=== PATIENT | female | born 1965 | race Caucasian/White ===

== ENCOUNTER 2017-07-22 10:52 | Day surgery (SDC) | payer OTHER ==
[2017-07-22 11:19] LABS: #Lymphocytes 1.1 thou/uL (1.20-3.40); #Monocytes 0.6 thou/uL (0.11-0.59); #Neutrophils 8.7 thou/uL (1.40-6.50); %Eosinophils 0.3 % (0.0-10.0); %Lymphocytes 10.1 % (21.0-51.0); Hematocrit 41.8 % (36.0-47.0); Red Blood Cell (RBC) Count 4.53 mill/uL (4.20-5.40); White Blood Cell (WBC) Count 10.4 thou/uL (4.8-10.8)
[2017-07-22] MEDS ORDERED: Sodium Chloride 0.9% 100 ML ONE (11:24)
[2017-07-22] MEDS ORDERED: Adacel (T-DAP) 0.5 ML VIAL ONE (11:24)
[2017-07-22] MEDS ORDERED: ceFAZolin Sodium 1 GM VIAL ONE (11:24)
[2017-07-22 11:46] LABS: ALT (SGPT) 13 U/L (8-55); AST (SGOT) 18 U/L (5-34); Alkaline Phosphatase 83 U/L (40-150); Anion Gap 12 mmol/L (10-20); BUN (Urea Nitrogen) 21 mg/dL (9.8-20.1); Bilirubin, Total 0.6 mg/dL (0.2-1.2); CK (CPK) 300 U/L (29-168); Calc. Creatinine Clearance 0 mL/min (70-130); Calcium 10.4 mg/dL (7.8-10.44); Carbon Dioxide 26 mmol/L (22-29); Chloride 105 mmol/L (98-107); Estimated GFR-MDRD 62; Globulin 3.2 g/dL (2.4-3.5); Lipase 51 U/L (8-78); Protein, Total 7.7 g/dL (6.0-8.3)
[2017-07-22 11:47] LABS: Troponin I 0.338 ng/mL (< 0.028)
--- NOTE | 2017-07-22 12:00 | RAD ---
CHEST ONE VIEWS: History: Chest pain. Comparison: 11-18-06 FINDINGS: Cervical fusion hardware is noted. Normal cardiac silhouette. The pulmonary vessels and hilum are no abdifatah. No masses or consolidation. No pneumothorax or osseous abnormality. IMPRESSION: No acute cardiopulmonary process. POS: [facility]
[2017-07-22] MEDS ORDERED: Bacitracin Zinc 1 Packet ONE (12:21)
--- NOTE | 2017-07-22 12:50 | RAD ---
LEFT FINGER THREE VIEWS: History: Injury. Comparison: None. FINDINGS: Moderate edema. No acute fracture or malalignment is appreciated. Mild degenerative joint space narr owing. IMPRESSION: No acute fracture or malalignment. POS: [facility]
--- NOTE | 2017-07-22 12:51 | RAD ---
THREE VIEWS OF THE LEFT FINGER: INDICATIONS: History of trauma to the left finger. The patient had a stressful event prior to arrival. Her dogs were fighting and she had to pull them apart. FINDINGS: There is an ossific density seen just volar to the long finger, middle phalangeal neck, which may re flect a small avulsion injury from the capsule insertion. There is soft tissue swelling of the left long finger. IMPRESSION: Findings suspicious for a small avulsion injury involving the palmar aspect of the left long finger middle phalangeal head/neck region. This can be seen with avulsion fractures of the capsular insert ion. POS: [facility]
[2017-07-22] MEDS ORDERED: Heparin 10,000 UNITS/1 ML VIAL ONE (13:04)
[2017-07-22] MEDS ORDERED: Nitroglycerin 100MG/250ML BOT 250 ML ONE (13:04)
--- NOTE | 2017-07-22 13:27 | CON ---
DATE OF CONSULTATION: 07/22/2017 HAND SURGERY CONSULT LOCATION: Emergency Room CHIEF COMPLAINT: Bilateral upper extremity dog bite. The patient reports she is a previous cardiac patient. The patient has had cardiac catheterization, stress test, who felt that she had two dogs undergoing a lot of stress with and etc. around her house who had a fight. She did not wa nt the dog to kill the other, so she pulled them apart. Immediately while doing this, she notes mul tiple bites by the dogs to different digits and up in the bilateral upper extremities, but she also had chest pain, tightness and is here with a bilingual teacher by her side in the emergency room. PHYSICAL EXAMINATION: The patient does appear to be alert, awake, and oriented x3, stable. She has already had an EKG which shows rhythm changes, lead changes compared to previous EKGs taken here. On examination of the right hand, she has multiple small less than 1 mm puncture wound not over the joint. No tendon laceration, these are being addressed here in the emergency room. She has M5 digi t power, elbow flexion, wrist flexion without pain with resistance at any site or joint on the right upper extremity. Left upper extremity, she has a 7 mm dog bite wound on the left ring finger which is just distal PIP joint appears to have full extension, but with resisted extension. She has pain along the incision. She has a 3 mm similar injury over the middle phalanx process, but it appeared to be extraarticular, had no pain or weakness or resistance with extension. She has normal capilla ry refill all sites. No light touch abnormality. ASSESSMENT AND RECOMMENDATIONS: Dog bite wound, mostly superficial, do not appear to be infected, b ut she has 1 that may involve a tendon laceration. I discussed with bilingual teacher. She needs informed catheterization, rule out myocardial infarction, possibly anticoagulation. So I agree he should do this. We will follow up in 1 day and since wound is already cleaned, we will explore and open and debride the other wound on postop day #2. [facility] is aware of this plan, will agree to proceed. We will follow once catheterization results are known.
[2017-07-22] MEDS ORDERED: Midazolam HCl 2 mg/2 ml Vial ONE ×2 (13:35→16:34)
[2017-07-22] MEDS ORDERED: Fentanyl 100 MCG/2 ML VIAL ONE (13:36)
[2017-07-22] MEDS ORDERED: Acetaminophen/Codeine 30-300mg Tablet PO PRN (14:00)
[2017-07-22] MEDS ORDERED: Sodium Chloride 0.9% 200 ML IV SCH (14:00)
[2017-07-22] MEDS ORDERED: traMADol HCl 50 MG TAB PO PRN (14:00)
[2017-07-22] MEDS ORDERED: Sodium Chloride 0.9% 1,000 ML IV SCH (14:15)
[2017-07-22] MEDS ORDERED: Ondansetron HCl/PF 4 MG/2 ML Vial IVP PRN (15:17)
[2017-07-22] MEDS ORDERED: Mag-Al 1200 mg/1200 mg/30 ML UDCUP PO PRN (15:17)
[2017-07-22] MEDS ORDERED: Zolpidem Tartrate 5 MG TAB PO PRN ×2 (15:17)
[2017-07-22] MEDS ORDERED: Diabetic Tussin 200 MG/10 ML UDCUP PO PRN (15:17)
[2017-07-22] MEDS ORDERED: Loperamide HCl 2 MG CAP PO PRN (15:17)
[2017-07-22] MEDS ORDERED: Acetaminophen 325 MG TAB PO PRN (15:17)
[2017-07-22] MEDS ORDERED: Senokot 8.6 MG TAB PO PRN (15:17)
[2017-07-22] MEDS ORDERED: Sodium Chloride 0.65% Nasal 44 ML BOT EA NARE PRN (15:17)
[2017-07-22] MEDS ORDERED: HYDROcodone/Acetaminophen 10/325 mg Tablet PO PRN (15:17)
[2017-07-22] MEDS ORDERED: Loratadine 10 MG TAB PO PRN (15:17)
[2017-07-22] MEDS ORDERED: Ondansetron ODT 4 MG TAB PO PRN (15:17)
[2017-07-22] MEDS ORDERED: Milk Of Magnesia 30 ML UDCUP PO PRN (15:17)
--- NOTE | 2017-07-22 15:52 | HP ---
PRIMARY CARE PHYSICIAN: Ton Lyle M.D. REASON FOR ADMISSION: Dog bite, chest pain, abnormal troponin. HISTORY OF PRESENT ILLNESS: A 51-year-old female with history of sleep apnea, not on CPAP, came to emergency room for evaluation of above-mentioned reason. Patient reports that before coming to hosp ital, she was trying to pull apart fighting dogs at her home, it was very stressful event at that ti me and subsequently she was still feeling chest tightness and that was radiating to left arm. She d escribed pressure-like sensation about 5/10 in intensity, lasted for few minutes and then eased up. Patient also got a lot of scratch glory as well as bite from dogs. Subsequently, emergency room workup showed a significantly abnormal troponin. The patient was taken to cardiac catheterization and cardiac catheterization came back normal. Patient denies any currently chest pain, shortness of breath, palpitations. She never had any exert ion related chest pain, palpitation or dizziness. She denies any fever or chills. She denies any U TI symptoms. She denies any constipation or diarrhea. The patient reports that her dog is up to da te in rabies vaccination. The patient also had tetanus shot in the emergency room. Regarding her w ound over both hands, Dr. Wakefield already evaluated this patient and he is planning to do surgical procedure later on today. I saw this patient in the emergency room as well as after cardiac catheterization in PACU. REVIEW OF SYSTEMS: The following complete review of systems was negative, unless otherwise mentione d in the HPI or below: Constitutional: Weight loss or gain, ability to conduct usual activities. Skin: Rash, itching. Eyes: Double vision, pain. ENT/Mouth: Nose bleeding, neck stiffness, pain, tenderness. Cardiovascular: Palpitations, dyspnea on exertion, orthopnea. Respiratory: Shortness of breath, wheezing, cough, hemoptysis, fever or night sweats. Gastrointestinal: Poor appetite, abdominal pain, heartburn, nausea, vomiting, constipation, or diar jose. Genitourinary: Urgency, frequency, dysuria, nocturia. Musculoskeletal: Pain, swelling. Neurologic/Psychiatric: Anxiety, depression. Allergy/Immunologic: Skin rash, bleeding tendency. Please see my HPI for pertinent positive and negative. All other review of systems reviewed and neg ative except as mentioned in the HPI. PAST MEDICAL HISTORY: History of sleep apnea, not on CPAP machine. PAST SURGICAL HISTORY: Tubal ligation, Cezar-en-Y, ACDF surgery, cardiac catheterization and require d no stent. EGD and colonoscopy was normal. PAST PSYCHIATRIC HISTORY: Reviewed and negative. SOCIAL HISTORY: Patient is . Her is present at bedside. No history of tobacco, alc ohol or illicit drug abuse. She is working in our hospital in CCU. FAMILY HISTORY: No strong family history of premature coronary artery disease, stroke or cancer. EMERGENCY ROOM COURSE: Patient is given tetanus vaccine, aspirin 325 mg and Ancef 1 g. ALLERGIES: No known drug allergies. CURRENT HOME MEDICATIONS: The patient is taking ibuprofen, Tylenol p.r.n. basis, but she is not on any specific prescribed medications. PHYSICAL EXAMINATION: VITAL SIGNS: Currently blood pressure 129/84, pulse 96, respiratory rate 16, temperature 99.4, satu ration 95% on room air, and weight 99.7 kilograms. GENERAL: Patient is currently alert, awake, no acute distress. HEAD: Normocephalic, atraumatic. EYES: Pupils round, reactive to light. Extraocular muscle intact. ENT: Oropharynx within normal limits. Moist mucous membranes. No oral lesions. No pharyngeal carlota thema, no exudate. NECK: Supple. Range of motion is normal. No meningeal signs of irritation. LUNGS: Clear. CARDIAC: S1 and S2 regular without any murmur. ABDOMEN: Soft and benign. EXTREMITIES: No edema. Good peripheral pulsation. Upper extremity, various laceration noted on lorenzo th upper extremity, especially on hand. NEUROLOGIC: Nonfocal examination. IMAGING AND SIGNIFICANT LABORATORY DATA: 1. EKG based on my review, sinus tachycardia, left atrial enlargement, nonspecific ST-T changes in lateral leads. 2. CBC: WBC 10.4, hemoglobin 13.5, and platelet 258. BMP: Sodium 139, potassium 3.8, chloride 10 5, carbon dioxide 26, BUN 21, creatinine 0.91, glucose 102, calcium 10.4. 3. LFT: AST 18, ALT 13, alkaline phosphatase 83, albumin 4.5. CK 300, CK-MB 4.5, troponin 0.338, lipase 51. ASSESSMENT AND PLAN/IMPRESSION: 1. Acute chest pain. The patient's chest pain description is atypical. She had cardiac catheteriz ation and it is negative for any stenosis. We will continue with aspirin 325 mg p.o. daily. We rafael l check lipid profile for risk stratification. 2. Significantly abnormal troponin, likely due to demand ischemia from stress response. We will do serial cardiac enzymes to see the trend of troponin, but she had a negative cardiac catheterization . Patient is already on aspirin therapy. 3. Dog bite. Patient has several puncture wound in her upper extremity, especially in both hands. She also has tendon laceration, hand surgeon will be consulted. We will continue with Zosyn 4.5 g IV q.8 hourly to prevent infection. Patient already has received tetanus toxoid injection in the em ergency room, patient's dog is immune to rabies, we will monitor while in the hospital. 4. Sleep apnea. Patient requested Dr. Smith to be consulted and we will consult Dr. Smith. 5. Deep venous thrombosis prophylaxis, Lovenox 40 mg subcutaneously daily. 6. Gastrointestinal prophylaxis, Pepcid 20 mg p.o. b.i.d. 7. Code status: The patient is FULL CODE. Disposition plan based on clinical course, we are expecting patient's stay in hospital more than 2 m idnights. Plan of care discussed with the patient and family member at bedside.
[2017-07-22] MEDS ORDERED: Fentanyl 250 MCG/5 ML VIAL ONE (16:34)
[2017-07-22] MEDS ORDERED: Betamet Acet/Betamet Na Ph 30 MG/5 ML VIAL ONE (16:35)
[2017-07-22] MEDS ORDERED: Bupivacaine PF 0.5% 30 ML VIAL ONE (16:35)
[2017-07-22] MEDS ORDERED: Sodium Chloride 0.9% 30 ML ONE (16:35)
[2017-07-22] MEDS ORDERED: Bacitracin Zinc Ointment 30 gm TUBE ONE (16:36)
[2017-07-22] MEDS ORDERED: Ondansetron HCl/PF 4 MG/2 ML Vial ONE (17:09)
[2017-07-22] MEDS ORDERED: Lidocaine 1% PF 5 ML VIAL ONE (17:09)
[2017-07-22] MEDS ORDERED: Propofol 200 MG/20 ML VIAL ONE (17:09)
[2017-07-22] MEDS ORDERED: Dexamethasone 20 MG/5 ML VIAL ONE (17:09)
[2017-07-22] MEDS ORDERED: Piperacillin/Tazobactam 4.5 GM in Sodium Chloride 0.9% 100 ML IVPB SCH (18:00)
[2017-07-22] MEDS ORDERED: Famotidine 20 MG TAB PO SCH (21:00)
--- NOTE | 2017-07-23 00:13 | CON ---
DATE OF CONSULTATION: 07/22/2017 REASON FOR CONSULTATION: Chest pain and abnormal troponins. 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 She was at home, and one of her dogs attacked another dog, and she was trying to separate them and she got bit on both hands. So she decided to come in for this. She at some point between her getting bitten and coming to the ER , she felt chest tightness in the mid sternal area. She complained of this in the ER, she had a troponin drawn that was positive, so Cardiology is being consulted for this. She is otherwise currently chest pain free. PAST MEDICAL HISTORY: 1. Obstructive sleep apnea. PAST SURGICAL HISTORY: 1. Tubal ligation. 2. Cezar-en-Y procedure. 3. EGD and colonoscopy. SOCIAL HISTORY: No alcohol, tobacco or drugs, a CCU nurse here in the hospital. REVIEW OF SYSTEMS: A 12-point review of systems done and is all negative unless stated in the history of present illness. OUTPATIENT MEDICATIONS: Ibuprofen and Tylenol p.r.n. ALLERGIES: No known drug allergies. PHYSICAL EXAMINATION: VITAL SIGNS: Temperature 98.1, blood pressure 120/82, respiratory rate 16, satting 95% on room air, heart rate of 98. GENERAL: Awake, alert and oriented x3, in no distress. HEENT: Normocephalic, atraumatic. NECK: Supple. LUNGS: Clear. CARDIOVASCULAR: S1, S2, no S3, S4, no murmurs or rubs. ABDOMEN: Soft, positive bowel sounds. EXTREMITIES: No edema. SKIN: Warm and dry. LABORATORY WORK: Reviewed. Troponin was in the positive range at 0.3. CBC and CMP are unremarkable otherwise. ASSESSMENT: 1. Non-ST elevation myocardial infarction. 2. Status post dog bites. PLAN: At this point, she has ruled in after having an episode of chest pain with positive troponins the safest thing before having any surgical procedure will be to undergo heart catheterization. She agrees to proceed. Conversation about risks and benefits of the procedure was done. She agrees to proceed. Differential diagnosis include plaque rupture, stress cardiomyopathy given her recent stress with her dogs. We will have further recommendations after results of coronary angiogram. If her coronary angiogram is unremarkable, she should be able to undergo any surgical procedure she may require. Further recommendations depending on the results of coronary angiogram. [facility]
--- NOTE | 2017-07-23 06:45 | OP ---
DATE OF SURGERY: 07/22/2017 PREOPERATIVE DIAGNOSES: 1. Left long finger dog bite wound. 2. Left ring finger dog bite wound with possible tenderness. POSTOPERATIVE DIAGNOSES: 1. Left long finger dog bite wound. 2. Left ring finger dog bite wound with possible tenderness. FINDINGS: 1. Left long finger dog bite wound, skin penetration only, with two 4 mm transverse bites that are conductive for debridement purposes. 2. At the left ring finger, 50% extensor tendon laceration zone 2 involving the origin of the termi nal tendon was just distal to the joints, so no joint involvement, but bite was deep enough to cause an impression fracture about the size of a tooth, 6 mm x 3 mm long in the subtendinous region of th is middle phalanx. Thus, she had a middle phalanx fracture. PROCEDURES: As follows: 1. Ring finger, left. A. Debridement of wound. B. Partial closure of wound, 3 cm. C. Open debridement material associated with open fracture. D. Open treatment, open fracture middle phalanx, left ring finger. E. Extensor tendon repair, zone 2, left ring finger. COMPLICATIONS: Other than what is listed today, none. INDICATION: The patient with dog bite wound evacuated to this hospital for the above. We also felt that she had a possible contamination of at least two fingers on the left hand, but not anything bu t superficial in right hand. We scheduled for surgery, but she had enough chest pain from being ups et over the incident that she had to get clearance from Cardiology. The next step, the patient had the fracture debrided using curet, Dawson blade, irrigation with 3 liters Pulsavac with antibiotic b acitracin inside and this was excisional technique including the bone and the periosteal cavity whic h is hardly ever seen. Once that was completed, the irrigation with 3 liters of normal saline and Pulsavac pressure was com pleted, we used 1 liter separate for the ipsilateral long finger irrigation. Then, we prepared for closure of wound and knows that the edge was very sharp, so we were able to approximate with a 4-0 P rolene and interrupted [id number] to bury the architecture and feel full extension. Now, this was completed, we deflated the tourniquet, hemostasis obtained. We only closed with a sim ple 6-0 nylon suture to the areas that were not directly involved in the bite wound. Inspection abo ve the bite wounds on this left upper extremity did not show any abnormality. The patient left the operating room with all but the open wound from the injury and no evidence of anesthetic or operativ e complication.
[2017-07-23] MEDS ORDERED: Aspirin 325 mg Enteric Coated Tablet PO SCH (09:00)
[2017-07-23] MEDS ORDERED: Enoxaparin Sodium 40 MG/0.4 ML SYRINGE SC SCH (09:00)
--- NOTE | 2017-07-23 15:17 | DIS ---
DATE OF ADMISSION: 07/22/2017 DATE OF DISCHARGE: 07/22/2017 PRIMARY DISCHARGE DIAGNOSES: 1. Chest pain, ruled out acute coronary syndrome. 2. Abnormal troponin due to demand ischemia. 3. Dog bite, status post surgical debridement. SECONDARY DISCHARGE DIAGNOSIS: None. PRIMARY PROCEDURE/OPERATION: Debridement of dog bite wound. Cardiac catheterization by Dr. Enriquez. RADIOLOGICAL INVESTIGATION: Chest x-ray and finger x-ray. SIGNIFICANT LABORATORY DATA: WBC 10.4, hemoglobin 13.5, platelet 258, troponin 0.338. BMP normal. LFTs normal. DISCHARGE MEDICATIONS: The patient was discharged from PACU by surgeons. I do not have any chance to give her any discharge medications. CONTRAINDICATIONS: None. CODE STATUS: FULL CODE. INPATIENT CONSULTANTS: Dr. Enriquez did cardiac catheterization. Dr. Wakefield did surgical debrideme nt for dog bite. ALLERGIES: No known drug allergy. TEST RESULTS PENDING ON DISCHARGE: None. DISCHARGE PLAN: Post hospital, the patient is discharged and patient will follow up with primary ca re physician. HOSPITAL COURSE: A 51-year-old female who had a dog bite. She was trying to separate fighting dogs and she had a wound on her both hand, required hand surgeon consultation and Dr. Wakefield did surgi stevo debridement. She was also complaining of chest pain and her troponin was significantly abnormal and that is why s he was taken for cardiac catheterization. Her cardiac catheterization was unremarkable. This patient received Ancef in the emergency room. She also received tetanus toxoid in the emergenc y room. Patient's dog was up to date in rabies vaccination. At this point, this patient was discha rged from PACU after admission. This patient was seen by me in the emergency room in PACU, but some how after hand surgical procedure, patient was discharged, I did not have any chance to write any di scharge medication for her.
== END 2017-07-22 20:05 | disposition home or self-care (01) ==
LOC: ERS 10:52 → CCL 13:24
PROVIDERS: ATTEND Internal Medicine Cardiovascular Disease
PROC: 0LQ80ZZ Repair Left Hand Tendon, Open Approach (ICD-10-PCS; principal; 2017-07-22)
DX: S61.255A Open bite of left ring finger without damage to nail, initial encounter (principal); S60.473A Other superficial bite of left middle finger, initial encounter; R07.89 Other chest pain; R79.89 Other specified abnormal findings of blood chemistry; G47.30 Sleep apnea, unspecified; Z98.1 Arthrodesis status; Z98.51 Tubal ligation status; Z98.890 Other specified postprocedural states
CPT/HCPCS: 36415; 71010; 80053; 82553; 83690; 84484; 85025; 90471; 90715; 93005; 93458; 96374; 99152; A4216; C1769; J0690; J0702; J1100; J1644; J2001; J2250; J2270; J2405; J2704; J3010; J3490; J7050; Q0162; S0020

== ENCOUNTER 2017-09-05 15:18 | Emergency (ER) | payer OTHER ==
[2017-09-05] MEDS ORDERED: Lidocaine 1% PF 5 ML VIAL ONE (16:40)
--- NOTE | 2017-09-05 17:15 | RAD ---
THREE VIEWS RIGHT THUMB: 09/05/17 HISTORY: Patient cut right thumb on a dry food products mixer while washing dishes. Right thumb injury. FINDINGS: There is mild osteoarthritis involving the interphalangeal joint of the thumb as well as minimal oste oarthritis involving the first carpometacarpal joint. There is no fracture or dislocation seen involv ing the right thumb. No radiopaque foreign body is identified. IMPRESSION: Minimal osteoarthritis without evidence of an acute osseous abnormality involving the right thumb. No radiopaque foreign body is seen. POS: [facility]
== END 2017-09-05 17:40 | disposition home or self-care (01) ==
LOC: ERS 15:18
DX: S61.011A Laceration without foreign body of right thumb without damage to nail, initial encounter (principal); G47.30 Sleep apnea, unspecified; W29.0XXA Contact with powered kitchen appliance, initial encounter; Y92.009 Unspecified place in unspecified non-institutional (private) residence as the place of occurrence of the external cause
CPT/HCPCS: 12001; J2001

== ENCOUNTER 2018-04-10 20:27 | Emergency (ER) | payer OTHER | END 2018-04-10 23:25 | disposition home or self-care (01) | LOC: ERS 20:27 | DX: S39.012A Strain of muscle, fascia and tendon of lower back, initial encounter (principal); X50.0XXA Overexertion from strenuous movement or load, initial encounter; Y99.0 Civilian activity done for income or pay | CPT/HCPCS: 99283 ==

== ENCOUNTER 2018-09-03 12:08 | Emergency (ER) | payer OTHER ==
[2018-09-03] MEDS ORDERED: Morphine 4 MG/ML VIAL ONE (12:33)
[2018-09-03] MEDS ORDERED: Ondansetron PF 4 MG/2 ML Vial ONE (12:33)
[2018-09-03 12:56] LABS: ALT (SGPT) 24 U/L (8-55); AST (SGOT) 32 U/L (5-34); Albumin 4.1 g/dL (3.5-5.0); Alkaline Phosphatase 82 U/L (40-150); Anion Gap 16 mmol/L (10-20); BUN (Urea Nitrogen) 18 mg/dL (9.8-20.1); Bilirubin, Total 0.5 mg/dL (0.2-1.2); Calc. Creatinine Clearance 0 mL/min (70-130); Carbon Dioxide 19 mmol/L (22-29); Chloride 107 mmol/L (98-107); Estimated GFR-MDRD 61; Globulin 3.2 g/dL (2.4-3.5); Glucose 102 mg/dL (70-105); Lipase 60 U/L (8-78); Potassium 4.4 mmol/L (3.5-5.1); Protein, Total 7.3 g/dL (6.0-8.3); Sodium 138 mmol/L (136-145)
[2018-09-03 13:01] LABS: CKMB 1.8 ng/mL (0-6.6); Troponin I Less than 0.010 ng/mL (< 0.028)
[2018-09-03 13:10] LABS: Hemoglobin 12.1 g/dL (12.0-16.0); Mean Corpuscular HGB CONC 32.5 g/dL (32.0-36.0); Mean Corpuscular Hemoglobin 28.7 pg (27.0-31.0); Mean Corpuscular Volume 88.3 fL (78.0-98.0); Mean Platelet Volume 7.5 fL (7.4-10.4); Platelet Count 244 thou/uL (130-400); RBC Distribution Width 13.3 % (11.5-14.5); Red Blood Cell (RBC) Count 4.23 mill/uL (4.20-5.40); White Blood Cell (WBC) Count 7.9 thou/uL (4.8-10.8)
[2018-09-03 13:14] LABS: Band 3 % (5-11); Eosinophils 1 % (0-10); Lymphocytes 29 % (21-51); MDiff Complete? YES; Monocytes 6 % (0-10); Neutrophil 61 % (42-75); RBC Morphology Normal
[2018-09-03 14:13] LABS: Bilirubin Negative (Negative); Blood, Urine Negative (Negative); Clarity CLEAR (Clear); Glucose, Urine (Dipstick) Negative (Negative); Leukocyte Small (Negative); Nitrite Negative (Negative); Protein, Urine (Dipstick) Negative (Neg-Trace); Specific Gravity, Urine 1.008 (1.002-1.036); pH, Urine 6.5 (5.0-9.0)
[2018-09-03 14:15] LABS: Bacteria/HPF None Seen HPF (None Seen); Hyaline Casts/LPF 0-3 HYALINE CAST LPF (0-3 Hyaline); Pathc Cast-AUWi Flag 0.29 (0-2.49); RBC/HPF 0-3 HPF (0-3); Squamous Epithelial 0-3 HPF (0-3); WBC/HPF 0-3 HPF (0-3)
--- NOTE | 2018-09-03 14:39 | ULT ---
RIGHT UPPER QUADRANT ULTRASOUND: History: Abdominal pain. Comparison: Ultrasound, 2004. Technique: Real-time grayscale and color evaluation of the right upper quadrant of the right upper qu adrant of the abdomen was performed. FINDINGS: The pancreas is not well seen. Mild increased hepatic echotexture. Portal vein is patent with antegra de flow. Gallbladder wall thickness is normal. The gallbladder is distended with layering gallstones. Right kidney measures 10.1 x 4.7 x 4.8 cm without mass, hydronephrosis, or abnormal calcifications. IMPRESSION: Cholelithiasis with mild distention of the gallbladder. Negative sonographic Coon's sign and no sig nificant pericholecystic fluid. No wall thickening to suggest acute cholecystitis. POS: [facility]
--- NOTE | 2018-09-03 14:45 | RAD ---
UPRIGHT CHEST ONE VIEW: History: 52-year-old female with history of epigastric pain for one hour. Comparison: 07-22-17 FINDINGS: Heart size is within upper range of normal. The lungs are clear. Anterior cervical fusion changes low er cervical spine. No acute fracture or dislocation. IMPRESSION: No acute intrathoracic disease. Borderline sized heart. Atherosclerosis of the aorta. Stable from valery or study. No new process. POS: [facility]
== END 2018-09-03 14:08 | disposition home or self-care (01) ==
LOC: ERS 12:08
DX: K80.70 Calculus of gallbladder and bile duct without cholecystitis without obstruction (principal); G47.30 Sleep apnea, unspecified
CPT/HCPCS: 71045; 76705; 80053; 81003; 81015; 82553; 83605; 83690; 84484; 85025; 93005; 96361; 96374; 96375; J2270; J2405

== ENCOUNTER 2019-05-21 20:52 | Emergency (ER) | payer OTHER ==
[2019-05-21] MEDS ORDERED: Ketorolac Tromethamine 60 MG/2 ML VIAL ONE (21:46)
--- NOTE | 2019-05-21 22:06 | CT ---
CT Thoracic Spine WO Con History: Pain Comparison: None. Findings: Visualized lungs are clear. Paraspinal soft tissues are unremarkable. Symmetric surgery. There is no acute fracture or malalignment of the thoracic spine. ACDF hardware lower cervical spine. Multilevel degenerative disc space height loss throughout the thoracic spine. Visualized ribs are intact. No paraspinal muscle hematoma. Mild osseous neural foraminal narrowing on the right from T7-T10 and on the left from T7-T11 area Impression: 1. No acute fracture or malalignment. 2. No paraspinal muscle hematoma. 3. Multilevel osseous neural foraminal narrowing due to posterior disc osteophyte complexes and facet arthropathy from T7-T11.
--- NOTE | 2019-05-21 22:10 | CT ---
CT Lumbar Spine WO Con History: Injury. Pain. Comparison: None. Findings: No retroperitoneal periaortic adenopathy. Paraspinal musculature is normal. No acute fracture or malalignment of the lumbar spine. High-grade facet arthropathy on the left at L4 /L5 and L5/S1. High-grade degenerative disc space height loss at T12/L1. Circumferential disc bulge at L4/L5 causes moderate bilateral neural foraminal narrowing. Same is true at L5/S1. Degenerative 2 mm L4 over L5 anterolisthesis. The transverse processes are intact. Impression: Degenerative changes. No acute fracture or malalignment. No paraspinal muscle hematoma.
== END 2019-05-21 22:59 | disposition home or self-care (01) ==
LOC: ERS 20:52
DX: S39.012A Strain of muscle, fascia and tendon of lower back, initial encounter (principal); G47.30 Sleep apnea, unspecified; Z79.899 Other long term (current) drug therapy; X50.0XXA Overexertion from strenuous movement or load, initial encounter
CPT/HCPCS: 72128; 72131; 96372; J1885

== ENCOUNTER 2019-07-04 23:56 | Observation (INO) | payer OTHER ==
[2019-07-05 00:28] LABS: #Eosinphils 0.1 thou/uL (0.0-0.7); #Lymphocytes 2.8 thou/uL (1.20-3.40); #Monocytes 0.6 thou/uL (0.11-0.59); #Neutrophils 4.2 thou/uL (1.40-6.50); %Basophils 0.6 % (0.0-1.0); %Eosinophils 1.5 % (0.0-10.0); %Lymphocytes 36.2 % (21.0-51.0); %Monocytes 7.6 % (0.0-10.0); %Neutrophils 54.2 % (42.0-75.0); Hemoglobin 9.5 g/dL (12.0-16.0); Mean Corpuscular HGB CONC 33.7 g/dL (32.0-36.0); Mean Corpuscular Hemoglobin 28.4 pg (27.0-31.0); Mean Corpuscular Volume 84.4 fL (78.0-98.0); Mean Platelet Volume 6.9 fL (7.4-10.4); Platelet Count 439 thou/uL (130-400); RBC Distribution Width 15.4 % (11.5-14.5); Red Blood Cell (RBC) Count 3.35 mill/uL (4.20-5.40); White Blood Cell (WBC) Count 7.7 thou/uL (4.8-10.8)
[2019-07-05 00:46] LABS: ALT (SGPT) 14 U/L (8-55); AST (SGOT) 17 U/L (5-34); Alkaline Phosphatase 83 U/L (40-150); Anion Gap 11 mmol/L (10-20); BUN (Urea Nitrogen) 15 mg/dL (9.8-20.1); Bilirubin, Total 0.2 mg/dL (0.2-1.2); Calc. Creatinine Clearance 0 mL/min (70-130); Calcium 9.5 mg/dL (7.8-10.44); Carbon Dioxide 25 mmol/L (22-29); Chloride 107 mmol/L (98-107); Estimated GFR-MDRD 68; Globulin 2.5 g/dL (2.4-3.5); Glucose 123 mg/dL (70-105); Lipase 55 U/L (8-78); Potassium 3.9 mmol/L (3.5-5.1); Protein, Total 6.5 g/dL (6.0-8.3); Sodium 139 mmol/L (136-145)
[2019-07-05] MEDS ORDERED: Sodium Chloride 0.9% 1,000 ML IV SCH (04:41)
[2019-07-05] MEDS ORDERED: Ondansetron PF 4 MG/2 ML Vial IVP PRN ×2 (04:42→12:03)
[2019-07-05] MEDS ORDERED: Morphine 2 MG/ML SYRINGE SLOW IVP PRN ×2 (04:42→12:03)
[2019-07-05 04:51] VITALS: BMI 36.7
--- NOTE | 2019-07-05 08:08 | ULT ---
PRELIMINARY REPORT/[facility]/EMERGENCY AFTER HOURS PROCEDURE: PROCEDURE INFORMATION: Exam: US Abdomen Limited, Right Upper Quadrant Exam date and time: 07/05/2019 1:43 AM Clinical history: 53 years old, female; Other: Epigastric pain TECHNIQUE: Imaging protocol: Real-time ultrasound of the abdomen with image documentation. Examination was focus ed on the right upper quadrant. COMPARISON: No relevant prior studies available. FINDINGS: Liver: No acute findings. No mass. Mildly echogenic/fatty. Gallbladder: Acoustic shadowing in the gallbladder fossa likely related to stones occupying and obscu ring the gallbladder lumen. Therefore evaluation of the gallbladder wall is limited. Negative Raleigh sign. Common bile duct: Unremarkable. Pancreas: Visualized pancreas is unremarkable. Right kidney: No acute findings. No mass. No hydronephrosis. IMPRESSION: Cholelithiasis described above. Thank you for allowing us to participate in the care of your patient. Dictated and Authenticated by: Monty Sánchez MD 07/05/2019 2:25 AM Central Time ([place] & [place]) FINAL REPORT ULTRASOUND GALLBLADDER: Date: 07/05/19 HISTORY: Epigastric pain. COMPARISON: Gallbladder ultrasound dated 09/03/18. FINDINGS: Real-time Pantoja scale and color evaluation of the right upper quadrant of the abdomen was performed. The findings and impression are concordant with the preliminary report by [facility]. Diffuse cholelithiasi s. POS: [facility]
[2019-07-05] MEDS ORDERED: Bupivacaine/Epinephrine 0.25% 30 ML VIAL ONE (09:18)
[2019-07-05] MEDS ORDERED: Midazolam HCl 2 mg/2 ml Vial ONE (09:29)
[2019-07-05] MEDS ORDERED: cefOXitin 2 GM VIAL ONE (09:29)
[2019-07-05] MEDS ORDERED: Sodium Chloride 0.9% 100 ML ONE (09:29)
[2019-07-05] MEDS ORDERED: Iothalamate Meglumine 60% 50 ML VIAL FS ONE (09:38)
[2019-07-05] MEDS ORDERED: Fentanyl 100 MCG/2 ML VIAL ONE (09:42)
[2019-07-05] MEDS ORDERED: Promethazine HCl 25 MG/ML VIAL SLOW IVP PRN (11:13)
[2019-07-05] MEDS ORDERED: Promethazine HCl 25 MG/ML VIAL IM PRN ×2 (11:13→12:03)
[2019-07-05] MEDS ORDERED: Ondansetron HCl/PF 4 MG/2 ML Vial IVP PRN (11:13)
[2019-07-05] MEDS ORDERED: Mag-Al 1200 mg/1200 mg/30 ML UDCUP PO PRN (12:03)
[2019-07-05] MEDS ORDERED: Calcium Carbonate 500 MG ChewTAB PO PRN (12:03)
[2019-07-05] MEDS ORDERED: HYDROcodone/Acetaminophen 10/325 mg Tablet PO PRN (12:03)
[2019-07-05] MEDS ORDERED: D5 1/2 NS w/20 mEq KCL 1,000 ML IV SCH (12:03)
[2019-07-05] MEDS ORDERED: traMADol HCl 50 MG TAB PO PRN ×2 (12:03)
[2019-07-05] MEDS ORDERED: hydrALAZINE 20 MG/ML VIAL SLOW IVP PRN (12:03)
[2019-07-05] MEDS ORDERED: Morphine 4 MG/ML VIAL SLOW IVP PRN (12:03)
[2019-07-05] MEDS ORDERED: Dextrose 50% Abboject 50 ML SYRINGE SLOW IVP PRN (12:03)
[2019-07-05] MEDS ORDERED: Dextrose 5% in Water 1,000 ML IV PRN (12:03)
[2019-07-05 12:08] VITALS: BP 131/83; TEMP 97.9
--- NOTE | 2019-07-05 14:58 | OP ---
DATE OF PROCEDURE: 07/05/2019 PREOPERATIVE DIAGNOSIS: Acute cholecystitis. POSTOPERATIVE DIAGNOSIS: Acute cholecystitis. PROCEDURE PERFORMED: Laparoscopic cholecystectomy. ANESTHESIA: General. ESTIMATED BLOOD LOSS: Minimal. COMPLICATIONS: None. SPECIMEN: Gallbladder. FINDINGS: Chronic cholecystitis. PROCEDURE IN DETAIL: The patient was taken to the operating room and laid supine on the operating room table. After general anesthetic was obtained, the abdomen was prepped and draped in a sterile fashion. A curved incision was made below the umbilicus. Cautery was used to dissect down to the umbilical fascia. Umbilical fascia was incised and held up using a Hai. The abdominal cavity was entered using a Amelia clamp. Holding stitch of Vicryl was placed on each side of the fascia. Schrader trocar was placed. High-flow pneumoperitoneum was obtained. An upper midline 5 mm port and 2 right upper quadrant 5 mm ports were placed under direct camera visualization. The gallbladder was retracted from the gallbladder fossa. The peritoneum of the gallbladder was opened anteriorly and posteriorly. The critical view triangle was seen showing only the cystic duct and cystic artery branching from medial to lateral. There were no other branching structures. Two clips were placed proximally on the cystic duct and one laterally. It was cut using laparoscopic scissors. The cystic artery was taken in the same way. Electrocautery was then used to dissect the gallbladder out of the gallbladder fossa. The gallbladder was placed in an Endo catch bag and brought out through the Schrader. There was no bleeding or bile in the liver bed. The cystic duct stump and cystic artery stump were intact, without evidence of extravasation or bleeding. All port sites were infiltrated using local anesthesia. All ports were removed under camera visualization. Pneumoperitoneum was let down. The Vicryl was used to close the fascial defect below the umbilicus. All incisions were irrigated and closed using 4-0 Monocryl and Dermabond. The patient was en route to Recovery in stable condition. All instrument counts, needle counts and lap counts were correct. Job ID: [id number]
[2019-07-05 15:51] LABS: Ferritin 9.06 ng/mL (10-291)
[2019-07-05] MEDS ORDERED: PHENYLEPHRINE-NS 100 MCG/ML 10 ML SYRINGE ONE (20:32)
[2019-07-05] MEDS ORDERED: Ondansetron PF 4 MG/2 ML Vial ONE (20:32)
[2019-07-05] MEDS ORDERED: Rocuronium Bromide 10 MG/ML (10ML VIAL) ONE (20:32)
[2019-07-05] MEDS ORDERED: PROPOFOL 200 MG/20 ML VIAL ONE (20:32)
[2019-07-05] MEDS ORDERED: Glycopyrrolate 0.2 MG/ML 5 ML SYRINGE ONE (20:32)
[2019-07-05] MEDS ORDERED: diphenhydrAMINE 50 MG/ML VIAL ONE (20:32)
[2019-07-05] MEDS ORDERED: Ketorolac Tromethamine 30 MG/ML VIAL ONE (20:32)
[2019-07-05] MEDS ORDERED: Famotidine 20 MG TAB PO SCH (21:00)
[2019-07-05] MEDS ORDERED: Famotidine/PF 20 mg/2ml Vial SLOW IVP SCH (21:00)
== END 2019-07-05 16:42 | disposition home or self-care (01) ==
LOC: ERS 23:56 → INTOOBSV 07-05 04:28 → SURG A 07-05 04:28
PROVIDERS: ADMIT Surgery; ATTEND Surgery
PROC: 0FT44ZZ Resection of Gallbladder, Percutaneous Endoscopic Approach (ICD-10-PCS; principal; 2019-07-05)
DX: K80.12 Calculus of gallbladder with acute and chronic cholecystitis without obstruction (principal); G47.30 Sleep apnea, unspecified; D64.9 Anemia, unspecified; Z98.84 Bariatric surgery status
CPT/HCPCS: 36415; 76705; 80053; 82607; 82728; 83690; 84425; 84484; 85025; 88304; 93005; 96372; 96374; G0378; J0694; J1200; J1885; J2250; J2270; J2405; J2550; J2704; J3010; J3490

== ENCOUNTER 2019-07-19 03:24 | Emergency (ER) | payer OTHER ==
[2019-07-19] MEDS ORDERED: Morphine 4 MG/ML VIAL ONE (03:49)
[2019-07-19 04:14] LABS: #Eosinphils 0.2 thou/uL (0.0-0.7); #Lymphocytes 1.9 thou/uL (1.20-3.40); #Monocytes 0.6 thou/uL (0.11-0.59); #Neutrophils 4.3 thou/uL (1.40-6.50); %Basophils 0.7 % (0.0-1.0); %Eosinophils 3.1 % (0.0-10.0); %Lymphocytes 26.5 % (21.0-51.0); %Monocytes 8.4 % (0.0-10.0); %Neutrophils 61.3 % (42.0-75.0); Hemoglobin 9.2 g/dL (12.0-16.0); Mean Corpuscular HGB CONC 32.9 g/dL (32.0-36.0); Mean Corpuscular Hemoglobin 27.6 pg (27.0-31.0); Mean Platelet Volume 6.9 fL (7.4-10.4); Platelet Count 249 thou/uL (130-400); RBC Distribution Width 16.2 % (11.5-14.5); Red Blood Cell (RBC) Count 3.32 mill/uL (4.20-5.40); White Blood Cell (WBC) Count 7.1 thou/uL (4.8-10.8)
[2019-07-19 04:30] LABS: ALT (SGPT) 22 U/L (8-55); AST (SGOT) 30 U/L (5-34); Albumin 3.6 g/dL (3.5-5.0); Alkaline Phosphatase 85 U/L (40-110); Anion Gap 12 mmol/L (10-20); BUN (Urea Nitrogen) 14 mg/dL (9.8-20.1); Bilirubin, Total 0.3 mg/dL (0.2-1.2); Calc. Creatinine Clearance 0 mL/min (70-130); Calcium 9.2 mg/dL (7.8-10.44); Carbon Dioxide 25 mmol/L (22-29); Chloride 108 mmol/L (98-107); Estimated GFR-MDRD 76; Globulin 2.5 g/dL (2.4-3.5); Glucose 99 mg/dL (70-105); Lipase 47 U/L (8-78); Potassium 3.7 mmol/L (3.5-5.1); Protein, Total 6.1 g/dL (6.0-8.3); Sodium 141 mmol/L (136-145)
[2019-07-19] MEDS ORDERED: Lidocaine Viscous Sol 2% 15 ml UD Cup ONE (04:36)
[2019-07-19] MEDS ORDERED: Mag-Al 1200 mg/1200 mg/30 ML UDCUP ONE (04:36)
[2019-07-19 06:45] LABS: Bilirubin Negative (Negative); Blood, Urine Negative (Negative); Clarity Clear (Clear); Glucose, Urine (Dipstick) Normal (Negative); Leukocyte Negative Leu/uL (Negative); Nitrite Negative (Negative); Protein, Urine (Dipstick) Negative (Neg-Trace); Urobilinogen Normal mg/dL (Less than 2)
--- NOTE | 2019-07-19 07:36 | CT ---
PRELIMINARY REPORT/[facility]/EMERGENCY AFTER HOURS PROCEDURE PROCEDURE INFORMATION: Exam: CT Abdomen And Pelvis With Contrast Exam date and time: 07/19/2019 5:11 AM Clinical history: 53 years old, female; Prior surgery; Patient HX: Er 1. 53 yo F presents to ED with C/O abdominal pain. PT reports she woke up about 1 hour ago with abdominal pain to her lateral epigastric region which radiates to her back. PT denies any vomiting or urinary issues. PT reports sh rafaela had her gallbladder removed 2 weeks ago. Surgical HX of tubal ligation, Cezar-en-Y gastric bypass, colonoscopy. Egd, c section x 1. TECHNIQUE: Imaging protocol: Computed tomography of the abdomen and pelvis with intravenous contrast. COMPARISON: US Gallbladder RUQ 07/19/2019 3:58 AM FINDINGS: Liver: Normal. No mass. Gallbladder and bile ducts: Cholecystectomy clips and mild inflammation in the gallbladder fossa compatible with recent cholecystectomy. No biliary ductal dilatation. Pancreas: Normal. No ductal dilation. Spleen: Normal. No splenomegaly. Adrenals: Normal. No mass. Kidneys and ureters: Normal. No hydronephrosis. Stomach and bowel: Colonic diverticulosis. No diverticulitis. Prior gastric bypass. No afferent loop syndrome. No evidence of an internal hernia. No bowel wall thickening or intestinal obstruction. Appendix: Normal appendix. Intraperitoneal space: No hemoperitoneum, pneumoperitoneum, or intraperitoneal fluid collection. Vasculature: Unremarkable. No abdominal aortic aneurysm. Lymph nodes: Unremarkable. No enlarged lymph nodes. Bladder: Unremarkable as visualized. Reproductive: Unremarkable as visualized. Bones/joints: Unremarkable. No acute fracture. Soft tissues: 3.8 cm loculated umbilical fluid collection may be postoperative seroma, resolving hematoma, or abscess. IMPRESSION: 3.8 cm loculated umbilical fluid collection may be postoperative seroma, resolving hematoma, or abscess. Thank you for allowing us to participate in the care of your patient. Dictated and Authenticated by: Fabian Griffin MD 07/19/2019 5:26 AM Central Time ([place] & [place]) FINAL REPORT CT ABDOMEN AND PELVIS WITH IV AND ORAL CONTRAST PERFORMED ON AN EMERGENCY BASIS: Date: 07/19/19 Time: 0513 hours HISTORY: Abdominal pain. COMPARISON: 07/14/2015. FINDINGS/IMPRESSION: Agree with the preliminary report by Dr. Griffin from [facility]. No acute internal abnormalit ies are apparent. Oval fluid pocket at the umbilicus may represent seroma from prior surgery. No evidence of internal complication. Code QA. Transcribed Date/Time: 07/19/2019 7:44 AM
--- NOTE | 2019-07-19 07:47 | ULT ---
PRELIMINARY REPORT/[facility]/EMERGENCY AFTER HOURS PROCEDURE: PROCEDURE INFORMATION: Exam: US Abdomen Limited, Right Upper Quadrant Exam date and time: 07/19/2019 3:58 AM Clinical history: 53 years old, female; Other: Ruq pain; Prior surgery; Surgery date: <1 month; Surgery type: Gb removed TECHNIQUE: Imaging protocol: Real-time ultrasound of the abdomen with image documentation. Examination was focus ed on the right upper quadrant. COMPARISON: US Abdomen 07/05/2019 1:43 AM FINDINGS: Liver: No acute findings. No mass. Gallbladder: Status post cholecystectomy. Common bile duct: Measures 7mm in diameter. Pancreas: Visualized pancreas is unremarkable. Right kidney: No acute findings. No mass. No hydronephrosis. IMPRESSION: No acute findings. Thank you for allowing us to participate in the care of your patient. Dictated and Authenticated by: Monty Sánchez MD 07/19/2019 4:42 AM Central Time ([place] & [place]) FINAL REPORT EMERGENCY AFTER HOURS RIGHT UPPER QUADRANT ULTRASOUND: Date: 07/19/19 FINDINGS/IMPRESSION: I agree with the preliminary report given by Dr. oMnty Sánchez from [facility]. POS: OFF
[2019-07-19] MEDS ORDERED: ISOVUE-370 76%-LOCM 1 ML ONE (13:40)
[2019-07-19] MEDS ORDERED: Iopamidol 370 76% 50 ML VIAL FS ONE (13:40)
== END 2019-07-19 05:55 | disposition home or self-care (01) ==
LOC: ERS 03:24
DX: M79.81 Nontraumatic hematoma of soft tissue (principal); R10.13 Epigastric pain; G47.30 Sleep apnea, unspecified
CPT/HCPCS: 74177; 76705; 80053; 81003; 83605; 83690; 84484; 85025; 93005; 96374; J2270; Q9966; Q9967

== ENCOUNTER 2019-11-30 07:44 | Outpatient (CLI) | payer OTHER ==
--- NOTE | 2019-11-30 12:08 | MRI ---
LUMBAR SPINE MRI WITHOUT IV CONTRAST: HISTORY: Low back pain, paresthesia, bilateral leg numbness. FINDINGS: Conus medullaris region is unremarkable terminating at L2. Generalized disk desiccation changes and ligament and facet hypertrophic changes. No evidence for significant abnormal marrow signal. T12-L1 disk: There is some disk space narrowing with some diffuse disk-osteophytosis with mild later al recess stenosis. Several multilevel nerve root sheath incidental cysts. L1-L2 disk: No significant canal or foraminal stenosis. L2-L3 disk: Small left posterolateral annular fissure without evidence for significant stenosis. L3-L4 disk: Unremarkable. L4-L5 disk: Diffuse disk bulging with mild lateral recess and foraminal stenosis. L5-S1 disk: No significant associated stenosis. Right and left-sided Tarlov cysts at S2 and S3. IMPRESSION: 1. Generalized disk desiccation changes with ligament and facet hypertrophic changes. Scattered are as of mild lateral recess and foraminal stenosis. 2. Tarlov cysts at S2 and S3. 3. Other findings as above. POS: [facility]
--- NOTE | 2019-11-30 12:13 | MRI ---
CERVICAL SPINE MRI WITH AND WITHOUT CONTRAST: Date: 11/30/2019 HISTORY: Neck pain. Previous cervical fusion. COMPARISON: None. TECHNIQUE: Cervical spine MRI is performed with and without IV Gadolinium administration. Multisequential, multi planar imaging is performed. FINDINGS: There is an anterior fusion plate with transvertebral body screws at C5, C6, and C7. Associated metal lic susceptibility artifact. There is no evidence of abnormal enhancement throughout the cervical jude tebra. The visualized brain parenchyma, cervicomedullary junction, cervical cord, and the upper thora cic cord have a normal size and signal intensity. No cord malacia, cord atrophy, or pathologic enhanc ement. No significant STIR hyperintensity to suggest vertebral body edema or ligamentous injury. C2-C3: Minimal central disc protrusion. No significant central canal stenosis or significant neural foraminal narrowing. C3-C4: Disc desiccation with moderate loss of disc space height. There is broad based disc bulge wit h left and right paracentral protrusions. Mild central canal stenosis. Minimal contact upon the left and right hemicord. No significant cord abnormality. Moderate to severe bilateral neural foraminal na rrowing predominantly due to uncovertebral hypertrophy. C4-C5: Disc desiccation without significant loss of disc space height. Broad based disc osteophyte c omplex abuts the thecal sac. Subarachnoid space is maintained. No significant central canal stenosis. Moderate to severe right and mild to moderate left foraminal narrowing due to uncovertebral hypertro phy. C5-C6: There is a central/left paracentral osteophyte ridge. No significant central canal stenosis. Mild bilateral foraminal narrowing due to uncovertebral hypertrophy. C6-C7: There is an osteophyte ridge with a central component. Mild central canal stenosis. Right alonzo ral foramen is patent. Mild left foraminal narrowing due to uncovertebral hypertrophy. Bilateral kerry neural sleeve cysts are noted. C7-T1: No significant central canal stenosis. Moderate bilateral foraminal narrowing due to uncovert ebral hypertrophy. Bilateral perineural sleeve cysts are noted. IMPRESSION: 1. Uncomplicated cervical fusion from C5-C7. 2. No abnormal signal intensity in the visualized brain parenchyma or spinal cord. 3. There are varying degrees of central canal stenosis and foraminal narrowing due to degenerative c hange. 4. Bilateral perineural sleeve cysts are noted at C5-C6 and C6-C7. [ POS: [facility]
--- NOTE | 2019-11-30 12:35 | MRI ---
THORACIC SPINE MRI WITHOUT IV CONTRAST: Date: 11/30/2019 HISTORY: Thoracic back pain. FINDINGS: There are some subtle probable Type I end plate changes involving the T11 and T12 vertebral bodies. N o evidence for other significant abnormal marrow edema. At T2-T3, there is a small left paracentral focal disc osteophyte with some associated ventral thecal sac compression and mild indention of the left side of the cord. At T5-T6, there is a left anterolateral disc osteophyte with some indention of the left lateral theca l sac. No evidence for spinal cord mass or other significant acute process. Generalized disc desiccat ion changes. IMPRESSION: 1. Generalized disc desiccation changes. Small left paracentral disc osteophyte at T2-T3 with indent ion of the ventral thecal sac and slight indention of the left cord. 2. Left lateral disc osteophyte at T5-T6 with some indention of the thecal sac, but no cord compress ion. 3. Subtle probable Type I end plate changes at T11-T12. POS: [facility]
--- NOTE | 2019-11-30 12:42 | RAD ---
LUMBAR SPINE SERIES 4 VIEWS TO INCLUDE FLEXION AND EXTENSION: HISTORY: Low back pain and paresthesia. COMPARISON: 05/07/2016 exam. FINDINGS: Vertebral bodies are normal in height. There is mild disk narrowing at the L4-5 level with a spondyl olisthesis of approximately 6-7 mm. I do not see that this significantly changes between flexion and extension views. Degenerative facet changes are noted. IMPRESSION: Arthritic changes of the spine as described above. POS: [facility]
--- NOTE | 2019-11-30 12:46 | CT ---
CT CERVICAL SPINE WITHOUT CONTRAST: Date: 11/30/2019 INDICATION: Neck pain. History of prior cervical spine surgery. FINDINGS: There has been prior anterior fusion procedure. Anterior plate and screws transfix C5, C6, and C7. In terbody implants and interbody fusion changes noted. Posterior alignment through these levels is pres erved with mild spondylosis. There is loss of disc space at C3-4 and loss of disc space at C7-T1. A large anterior bridging osteophyte is seen at C4-5. At C2-3, mild spondylosis abuts the anterior cord at this level. No significant foraminal stenosis. At C3-4, slight posterolisthesis with posterior disc bulge and spondylosis abuts the anterior cord. T here is bilateral foraminal stenosis due to facet and uncinate hypertrophy. At C4-5, mild disc bulge and spondylosis efface the anterior subarachnoid space and abut the anterior cord. Left foraminal stenosis secondary to facet and uncinate hypertrophy. At C5-6, fusion changes with mild posterior spondylosis effacing anterior subarachnoid space. No sign ificant foraminal stenosis. AT C6-7, there are fusion changes. Mild spondylosis effaces the anterior subarachnoid space. No signi ficant foraminal stenosis. At C7-T1, mild disc bulge and spondylosis. No significant cord impingement or foraminal stenosis. IMPRESSION: There are postoperative and degenerative changes of the cervical spine. Foraminal stenosis at several levels as described above. POS: [facility]
--- NOTE | 2019-11-30 13:00 | RAD ---
CERVICAL SPINE SERIES 3 VIEWS: Date: 11/30/2019 HISTORY: Neck pain. Patient has undergone anterior cervical fusion from C5 to C7. There is mild disc narrowing at C4-5, m ore pronounced disc narrowing at C3-4, with posterior osteophytic change and minimal retrolisthesis a t this level. The flexion and extension views show stable postop change. IMPRESSION: Postoperative changes and arthritic changes of the spine. POS: [facility]
== END 2019-11-30 07:45 | disposition home or self-care (01) ==
LOC: MRI 07:44
PROVIDERS: ATTEND Surgery
DX: M54.5 Low back pain (principal); M54.2 Cervicalgia; M54.6 Pain in thoracic spine; R20.2 Paresthesia of skin; M47.812 Spondylosis without myelopathy or radiculopathy, cervical region; M48.02 Spinal stenosis, cervical region; M46.92 Unspecified inflammatory spondylopathy, cervical region; M46.96 Unspecified inflammatory spondylopathy, lumbar region; M25.78 Osteophyte, vertebrae; M48.061 Spinal stenosis, lumbar region without neurogenic claudication; G96.19 Other disorders of meninges, not elsewhere classified; M51.9 Unspecified thoracic, thoracolumbar and lumbosacral intervertebral disc disorder; Z98.1 Arthrodesis status; Z98.890 Other specified postprocedural states
CPT/HCPCS: 72040; 72120; 72125; 72141; 72146; 72148; 72156

== ENCOUNTER 2020-03-13 10:38 | Outpatient (CLI) | payer OTHER ==
--- NOTE | 2020-03-13 12:53 | MRI ---
MRI OF THE RIGHT SHOULDER WITHOUT CONTRAST: INDICATION: History of rotator cuff tear. COMPARISON: None. FINDINGS: There is a full-thickness tear involving the anterior supraspinatus at the footprint measuring 0.6 x 0.5 cm. There is partial thickness articular surface extension into the mid supraspinatus. There is an area of intertendinous delamination involving the anterior to mid infraspinatus. There is a smal l amount of fluid in the subacromial, subdeltoid bursa. There is mild AC joint osteoarthrosis. No m uscular atrophy is evident. Biceps tendon demonstrates a mild intraarticular tendonosis. Biceps an chor complex is intact. The superior glenoid labrum is intact. The anterior inferior glenohumeral l abral ligamentous complex is intact. There is a type II acromion. No os acromiale is evident. IMPRESSION: 1. Full-thickness partial-width tear of the anterior supraspinatus. 2. Partial-thickness intertendonous delamination involving the anterior to mid infraspinatus. 3. A small amount of fluid in the subacromial subdeltoid bursa. 4. Mild to moderate acromioclavicular joint osteoarthrosis. 5. Moderate acromioclavicular joint osteoarthrosis. 6. Mild biceps tendinosis. POS: [facility]
== END 2020-03-13 10:39 | disposition home or self-care (01) ==
LOC: BICMRI 10:38
PROVIDERS: ATTEND Orthopaedic Surgery
DX: M75.121 Complete rotator cuff tear or rupture of right shoulder, not specified as traumatic (principal); M19.011 Primary osteoarthritis, right shoulder; M75.21 Bicipital tendinitis, right shoulder

== ENCOUNTER 2021-01-21 21:04 | Emergency (ER) | payer OTHER, SELFPAY ==
[2021-01-22] MEDS ORDERED: Morphine 4 MG/ML VIAL ONE (00:44)
[2021-01-22] MEDS ORDERED: Clindamycin 150 MG CAP ONE (00:45)
== END 2021-01-22 00:53 | disposition home or self-care (01) ==
LOC: ERS 21:04
DX: K04.7 Periapical abscess without sinus (principal); K02.9 Dental caries, unspecified; G47.30 Sleep apnea, unspecified; R59.0 Localized enlarged lymph nodes
CPT/HCPCS: 96372; 99283; J2270

== ENCOUNTER 2021-07-07 04:40 | Emergency (ER) | payer OTHER, SELFPAY ==
[2021-07-07] MEDS ORDERED: Ketorolac Tromethamine 30 MG/ML VIAL ONE (05:19)
[2021-07-07 05:26] LABS: Bacteria/HPF None Seen HPF (None Seen); Bilirubin Negative (Negative); Blood, Urine Negative (Negative); Clarity Clear (Clear); Glucose, Urine (Dipstick) Normal (Negative); Ketone, Urine Negative (Negative); Leukocyte 75 Leu/uL (Negative); Nitrite Negative (Negative); Protein, Urine (Dipstick) 10 mg/dL (Neg-Trace); RBC/HPF 0-3 HPF (0-3); Specific Gravity, Urine 1.028 (1.002-1.036); Squamous Epithelial 0-3 HPF (0-3); Urobilinogen Normal mg/dL (Less than 2); WBC/HPF 0-3 HPF (0-3)
[2021-07-07] MEDS ORDERED: Ondansetron PF 4 MG/2 ML Vial ONE (05:27)
[2021-07-07 05:40] LABS: #Basophils 0.1 thou/uL (0.0-0.2); #Eosinphils 0.1 thou/uL (0.0-0.7); #Lymphocytes 1.5 thou/uL (1.20-3.40); #Monocytes 0.4 thou/uL (0.11-0.59); #Neutrophils 5.4 thou/uL (1.40-6.50); %Basophils 0.7 % (0.0-1.0); %Lymphocytes 20.4 % (21.0-51.0); %Monocytes 5.3 % (0.0-10.0); %Neutrophils 72.7 % (42.0-75.0); Hemoglobin 14.1 g/dL (12.0-16.0); Mean Corpuscular HGB CONC 32.6 g/dL (32.0-36.0); Mean Corpuscular Hemoglobin 30.3 pg (27.0-31.0); Mean Corpuscular Volume 92.8 fL (78.0-98.0); Platelet Count 147 thou/uL (130-400); RBC Distribution Width 12.9 % (11.5-14.5); Red Blood Cell (RBC) Count 4.64 mill/uL (4.20-5.40); White Blood Cell (WBC) Count 7.5 thou/uL (4.8-10.8)
[2021-07-07 06:09] LABS: ALT (SGPT) 40 U/L (8-55); AST (SGOT) 72 U/L (5-34); Albumin 4.1 g/dL (3.5-5.0); Alkaline Phosphatase 118 U/L (40-110); Anion Gap 15 mmol/L (10-20); BUN (Urea Nitrogen) 10 mg/dL (9.8-20.1); Bilirubin, Total 0.8 mg/dL (0.2-1.2); Calc. Creatinine Clearance 0 mL/min (70-130); Carbon Dioxide 25 mmol/L (22-29); Chloride 103 mmol/L (98-107); Globulin 3.5 g/dL (2.4-3.5); Glucose 159 mg/dL (70-105); Lipase 35 U/L (8-78); Potassium 4.7 mmol/L (3.5-5.1); Protein, Total 7.6 g/dL (6.0-8.3); Sodium 138 mmol/L (136-145)
[2021-07-07] MEDS ORDERED: Iopamidol 370 76% 100 ML VIAL ONE (13:48)
== END 2021-07-07 08:58 | disposition home or self-care (01) ==
LOC: ERS 04:40
DX: R10.10 Upper abdominal pain, unspecified (principal); R10.13 Epigastric pain; G47.30 Sleep apnea, unspecified
CPT/HCPCS: 74177; 80053; 81003; 81015; 83690; 84484; 85025; 93005; 96374; 96375; J1885; J2405; Q9967

== ENCOUNTER 2021-10-02 10:10 | Outpatient (CLI) | payer OTHER | END 2021-10-02 10:11 | disposition home or self-care (01) | LOC: BICMAMMO 10:10 | PROVIDERS: ATTEND Obstetrics & Gynecology | DX: Z12.31 Encounter for screening mammogram for malignant neoplasm of breast (principal); Z80.3 Family history of malignant neoplasm of breast | CPT/HCPCS: 77063; 77067 ==

== ENCOUNTER 2021-10-28 02:22 | Emergency (ER) | payer BC, OTHER ==
[2021-10-28 04:17] LABS: #Eosinphils 0.1 thou/uL (0.0-0.7); #Lymphocytes 1.8 thou/uL (1.20-3.40); #Monocytes 0.5 thou/uL (0.11-0.59); #Neutrophils 4.8 thou/uL (1.40-6.50); %Basophils 0.2 % (0.0-1.0); %Eosinophils 1.6 % (0.0-10.0); %Lymphocytes 24.6 % (21.0-51.0); %Monocytes 7.2 % (0.0-10.0); %Neutrophils 66.4 % (42.0-75.0); Hemoglobin 12.5 g/dL (12.0-16.0); Mean Corpuscular HGB CONC 33.3 g/dL (32.0-36.0); Mean Corpuscular Hemoglobin 30.3 pg (27.0-31.0); Mean Corpuscular Volume 91.1 fL (78.0-98.0); Mean Platelet Volume 7.1 fL (7.4-10.4); Platelet Count 244 thou/uL (130-400); RBC Distribution Width 12.4 % (11.5-14.5); Red Blood Cell (RBC) Count 4.12 mill/uL (4.20-5.40); White Blood Cell (WBC) Count 7.2 thou/uL (4.8-10.8)
[2021-10-28 04:30] LABS: ALT (SGPT) 47 U/L (8-55); AST (SGOT) 83 U/L (5-34); Alkaline Phosphatase 88 U/L (40-110); Anion Gap 15 mmol/L (10-20); BUN (Urea Nitrogen) 22 mg/dL (9.8-20.1); Bilirubin, Total 0.4 mg/dL (0.2-1.2); Calc. Creatinine Clearance 0 mL/min (70-130); Calcium 10.2 mg/dL (7.8-10.44); Carbon Dioxide 25 mmol/L (22-29); Chloride 104 mmol/L (98-107); Globulin 3.2 g/dL (2.4-3.5); Glucose 140 mg/dL (70-105); Lipase 53 U/L (8-78); Potassium 4.2 mmol/L (3.5-5.1); Protein, Total 7.2 g/dL (6.0-8.3); Sodium 140 mmol/L (136-145)
== END 2021-10-28 08:07 | disposition home or self-care (01) ==
LOC: ERS 02:22
DX: R10.13 Epigastric pain (principal)
CPT/HCPCS: 36415; 71046; 74177; 80053; 83690; 84484; 85025; 93005; 94760

== ENCOUNTER 2024-07-07 13:42 | Outpatient (CLI) | payer BC | END 2024-07-07 13:43 | disposition home or self-care (01) | LOC: MRI 13:42 | PROVIDERS: ATTEND Surgery | DX: M54.50 Low back pain, unspecified (principal); M54.2 Cervicalgia; M43.16 Spondylolisthesis, lumbar region; M47.816 Spondylosis without myelopathy or radiculopathy, lumbar region; M51.35 Other intervertebral disc degeneration, thoracolumbar region; M51.34 Other intervertebral disc degeneration, thoracic region; M43.22 Fusion of spine, cervical region; M48.02 Spinal stenosis, cervical region; Z98.1 Arthrodesis status; Z98.890 Other specified postprocedural states | CPT/HCPCS: 72141; 72148 ==

== ENCOUNTER 2025-05-20 07:54 | Outpatient (CLI) | payer BC | END 2025-05-20 07:55 | disposition home or self-care (01) | LOC: BICMAMMO 07:54 | DX: Z12.31 Encounter for screening mammogram for malignant neoplasm of breast (principal); M81.0 Age-related osteoporosis without current pathological fracture; M85.89 Other specified disorders of bone density and structure, multiple sites; Z80.3 Family history of malignant neoplasm of breast | CPT/HCPCS: 77063; 77067; 77080 ==